=== PATIENT | male | born 1950 | race African-American/Black ===

== ENCOUNTER → 2020-07-05 | Outpatient (CLI) | payer MEDICARE | END | disposition home or self-care (01) | LOC: MRI 12:34 | PROVIDERS: ATTEND Internal Medicine Critical Care Medicine | DX: I63.9 Cerebral infarction, unspecified (principal) | CPT/HCPCS: 70551 ==

== ENCOUNTER → 2020-11-12 | Outpatient (CLI) | payer MEDICARE | END | disposition home or self-care (01) | LOC: CT 10:41 | PROVIDERS: ATTEND Internal Medicine Critical Care Medicine | DX: I67.82 Cerebral ischemia (principal) ==

== ENCOUNTER → 2021-07-11 | Outpatient (CLI) | payer MEDICARE ==
[~2021-07-11] MED LIST: BARIUM SULFATE 450ML ORAL SUSP ONE
== END | disposition home or self-care (01) ==
LOC: CT 10:11
PROVIDERS: ATTEND Internal Medicine Critical Care Medicine
DX: R10.9 Unspecified abdominal pain (principal); J98.11 Atelectasis; M47.816 Spondylosis without myelopathy or radiculopathy, lumbar region
CPT/HCPCS: 74176

== ENCOUNTER → 2022-05-12 | Outpatient (CLI) | payer MEDICARE ==
[~2022-05-12] MED LIST changes: +BARIUM SULFATE(VOLUMEN) 450 ML ORAL.SUSP ONE
== END | disposition home or self-care (01) ==
LOC: CT 08:26
PROVIDERS: ATTEND Internal Medicine Critical Care Medicine
DX: K57.30 Diverticulosis of large intestine without perforation or abscess without bleeding (principal)
CPT/HCPCS: 74176

== ENCOUNTER 2022-12-29 15:17 | Emergency (ER) | payer MEDICAID, MEDICARE ==
[~2022-12-29] VITALS: Ht 172.7 cm; Wt 84.0 kg
[2022-12-29 15:29] VITALS: BP 200/100
[2022-12-29 17:38] LABS: HEMOGLOBIN. 12.3 g/dL (14.0-18.0); MEAN CORPUSCULAR HEMOGLOBIN 29.9 pg (28.0-32.0); MEAN CORPUSCULAR VOLUME 89.6 fL (80.0-94.0); PLATELET 201 x1000/uL (130-400); RED BLOOD CELL COUNT 4.13 mill/uL (4.7-6.1); RED CELL DISTRIBUTION WIDTH 15.9 % (11.6-14.6)
[2022-12-29 17:49] LABS: INR 1.1; PROTHROMBIN TIME 11.9 sec (9.6-11.0)
[2022-12-29 17:51] LABS: CHLORIDE 107 mEq/L (98-107)
[2022-12-29] MEDS ORDERED: VISCOUS LIDOCAINE 2% 15 ML UDC PO STA (18:22)
[2022-12-29] MEDS ORDERED: FAMOTIDINE 20MG TABLET PO ONE (18:30)
[2022-12-29] MEDS ORDERED: MAGNESIUM/ALUMINUM HYDROXIDE/SIMETHICONE 30ML UDC PO ONE (18:30)
[2022-12-29] MEDS ORDERED: HYDRALAZINE HCL 25MG TABLET PO ONE (18:30)
[2022-12-29] MEDS ORDERED: MAGNESIUM/ALUMINUM HYDROXIDE/SIMETHICONE 30ML UDC PO NR (22:00)
[2022-12-29] MEDS ORDERED: HYDRALAZINE HCL 25MG TABLET PO NR (22:00)
[2022-12-29 22:49] LABS: PLATELET ESTIMATE NORMAL
== END 2022-12-30 10:34 | disposition home or self-care (01) ==
LOC: ER 15:17
DX: I10 Essential (primary) hypertension (principal); E78.00 Pure hypercholesterolemia, unspecified
CPT/HCPCS: 36415; 71045; 80053; 83880; 84484; 85025; 93005; 99285

== ENCOUNTER 2023-04-26 18:33 | Emergency (ER) | payer MEDICARE ==
[~2023-04-26] VITALS: Ht 182.9 cm; Wt 70.0 kg
[2023-04-26 18:42] VITALS: O2SAT 98
[2023-04-26] MEDS ORDERED: CLONIDINE 0.1MG TABLET PO ONE (18:45)
[2023-04-26] MEDS ORDERED: HYDRALAZINE HCL 50MG TABLET PO ONE (18:45)
[2023-04-26] MEDS ORDERED: HYDRALAZINE HCL 50MG TABLET PO NR (19:15)
[2023-04-26] MEDS ORDERED: HYDRALAZINE 20MG/ML VIAL IV ONE (19:45)
[2023-04-26 22:50] VITALS: BP 154/91; PULSE 69; RESP 14; TEMP 98.4
[2023-04-26] MEDS ORDERED: HYDRALAZINE 20MG/ML VIAL IV PRN (23:00)
== END 2023-04-26 23:09 | disposition home or self-care (01) ==
LOC: ER 18:33
DX: I10 Essential (primary) hypertension (principal); E11.9 Type 2 diabetes mellitus without complications; E78.00 Pure hypercholesterolemia, unspecified
CPT/HCPCS: 99284; 96374; 96376; J0360